=== PATIENT | male | born 1980 | race Two or more races ===

== ENCOUNTER 2017-07-25 19:25 | Emergency (ER) | payer OTHER ==
[2017-07-25 19:42] VITALS: BMI 24.3
[2017-07-25 19:53] VITALS: RESP 18; TEMP 98.4
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
[2017-07-25 22:46] VITALS: BP 134/72; PULSE 54; O2SAT 98
--- NOTE | 2017-07-26 10:04 | RAD ---
PROCEDURE: Cervical Spine Radiographs. HISTORY: Pain. COMPARISON: None. FINDINGS: BONES: There is normal alignment of the cervical vertebral bodies. There is normal cervical lordosis. Vertebral height is normal. Bone mineralization is normal. There is no acute fracture or traumatic anterior listhesis. The craniocervical junction is normal. The atlantoaxial joint normal. DISC SPACES: Normal. SOFT TISSUES: Normal. No prevertebral soft tissue swelling. OTHER FINDINGS: None. IMPRESSION: No acute fracture or traumatic anterior listhesis.
== END 2017-07-25 22:32 | disposition home or self-care (01) ==
LOC: ED 19:25
DX: S16.1XXA Strain of muscle, fascia and tendon at neck level, initial encounter (principal); V43.52XA Car driver injured in collision with other type car in traffic accident, initial encounter; Y92.410 Unspecified street and highway as the place of occurrence of the external cause